=== PATIENT | male | born 1960 | race Caucasian/White ===

== ENCOUNTER 2018-11-03 19:07 | Emergency (ER) | payer BC ==
--- NOTE | 2018-11-03 20:08 | EDM.PDOC ---
ED HPI GENERAL MEDICAL PROBLEM - General Chief Complaint: Diabetic Complaint Stated Complaint: HIGH BLOOD SUGARS Time Seen by Provider: 11/03/18 19:57 Source of Information: Reports: Patient, Family, RN Notes Reviewed History Limitations: Reports: No Limitations - History of Present Illness INITIAL COMMENTS - FREE TEXT/NARRATIVE: 58-year-old gentleman presents emergency department today requesting to have his blood sugar checked only, he has been having problems with his blood sugar as of late his meter recently broke he knows his A1c is 11.2 reading and this months was average is around 300 he got a call from [facility] today stating his blood sugar was over 500 today. He has noticed his vision is not as sharp as it used to be and does get blurry at times recent started medication of Chantix and has finished chemotherapy rounds for prostate cancer denies pain Pain Score (Numeric/FACES): 0 - Related Data Allergies Allergy/AdvReac Type Severity Reaction Status Date / Time No Known Allergies Allergy Verified 11/03/18 19:33 Home Meds: Home Meds Aspirin [Kathleen Chewable] 81 mg PO DAILY 11/03/18 [History] Cholecalciferol (Vitamin D3) [Vitamin D3] 5,000 unit PO DAILY 11/03/18 [History] Fenofibrate 160 mg PO DAILY 11/03/18 [History] Varenicline [Chantix] 2 tab PO DAILY 11/03/18 [History] atorvaSTATin Calcium [Atorvastatin Calcium] 20 mg PO DAILY 11/03/18 [History] buPROPion [Wellbutrin SR] 300 mg PO DAILY 11/03/18 [History] metFORMIN HCl [Metformin HCl] 1,000 mg PO BID 11/03/18 [History] Past Medical History HEENT History: Reports: Impaired Vision Respiratory History: Reports: Other (See Below) Other Respiratory History: ephazyma Musculoskeletal History: Reports: Arthritis, Fracture, Other (See Below) Other Musculoskeletal History: L4-L5 fracture Endocrine/Metabolic History: Reports: Diabetes, Type II Oncologic (Cancer) History: Reports: Prostate - Past Surgical History HEENT Surgical History: Reports: Myringotomy w Tube(s) Male Surgical History: Reports: Prostate Biopsy, Prostatectomy, Other (See Below) Other Male Surgeries/Procedures: Prostate CA Neurological Surgical History: Reports: Spinal Fusion, Other (See Below) Other Neurological Surgeries/Procedures: L4 and L5 Social & Family History - Tobacco Use Tobacco Use Comment: stopped 5 days ago on chantix - Caffeine Use Caffeine Use: Reports: Coffee, Soda - Recreational Drug Use Recreational Drug Use: No ED ROS GENERAL - Review of Systems Review Of Systems: See Below Constitutional: Reports: No Symptoms HEENT: Reports: Vision Change Respiratory: Reports: No Symptoms Cardiovascular: Reports: No Symptoms Endocrine: Reports: High Glucose GI/Abdominal: Reports: No Symptoms ED EXAM GENERAL NO PERIP PULSE - Physical Exam Exam: See Below Exam Limited By: No Limitations General Appearance: Alert, WD/WN, No Apparent Distress Respiratory/Chest: No Respiratory Distress Course - Vital Signs Last Recorded V/S: Last Vital Signs Temp 96.7 F 11/03/18 19:22 Pulse 101 H 11/03/18 19:22 Resp 22 H 11/03/18 19:22 BP 174/102 H 11/03/18 19:22 Pulse Ox 98 11/03/18 19:22 Departure - Departure Time of Disposition: 20:06 Disposition: Home, Self-Care 01 Condition: Fair Clinical Impression: Hyperglycemia, Hypoglycemia, Poorly controlled type 2 diabetes mellitus - Discharge Information Referrals: Shemar Blum MD [Primary Care Provider] - Additional Instructions: Please follow-up with your primary care provider tomorrow for further evaluation - Assessment/Plan Plan: Assessment Acuity = acute Site and laterality = hyperglycemia Etiology = secondary to poor blood sugar control and diabetes mellitus type 2 Manifestations = change in vision probably related to blood sugar Location of injury = Home Lab values = blood sugar today was 340 Plan I did discuss options with him including further evaluation which he declined also offered to start medications that would be more appropriate for him. His last creatinine level is 1.7 so he is no longer a candidate for metformin is currently on 1000 g per day. He elected to follow up with his primary care tomorrow for reevaluation and adjustment of medications This note was dictated using [employer] voice recognition software please call with any questions on syntax or grammar.
== END 2018-11-03 20:27 | disposition home or self-care (01) ==
LOC: JP.ED 19:07
DX: E11.65 Type 2 diabetes mellitus with hyperglycemia (principal); Z79.82 Long term (current) use of aspirin; Z79.899 Other long term (current) drug therapy; Z79.84 Long term (current) use of oral hypoglycemic drugs; Z85.46 Personal history of malignant neoplasm of prostate
CPT/HCPCS: 82962; 99284